=== PATIENT | female | born 1955 | race Two or more races ===

== ENCOUNTER 2025-02-15 23:47 | Inpatient (IN) | payer OTHER, SELFPAY ==
[2025-02-15] VITALS (19 sets, daily range): BP systolic 96–175; BP diastolic 44–74; BMI 24.5
--- NOTE | 2025-02-15 20:39 | ED.GENMED ---
History of Present Illness
General
Chief Complaint: Musculo-Skeletal Complaint
Source: patient, family and ambulance crew
Exam Limitations: none
Time Seen by Provider: 02/15/25 20:24
Nursing documentation reviewed up to this point in time: agreed with
History of Present Illness
History of Present Illness:
69-year-old female with a past medical history of hypertension, hyperlipidemia, diabetes who presents to the emergency department for evaluation after a fall on the treadmill. Patient was walking on the treadmill and was trying to stop it; she
accidentally hit the button to increase speed and was thrown backwards, fell face forward. She landed on both arms outstretched and struck the front of her face. She had some epistaxis and sustained abrasions to the chin and palms from treadmill
belt. She injured both shoulders�she has a deformity to left shoulder and has pain in both shoulders left greater than right. She complains of some mild pain in her left thigh. She reports mild headache. Denies neck pain. Denies back pain.
Denies chest/rib pain. She denies abdominal pain. She denies other complaints. She is on aspirin but no other blood thinners.
Review of Systems
Review of Systems
All Other Systems: ROS reviewed and negative except as documented in HPI and ROS
Respiratory: Denies trouble breathing
Cardiac: Denies chest pain
ABD/GI: Denies abdominal pain or nausea
: Denies flank pain
Musculoskeletal: Reports joint pain; Denies neck pain or back pain
Skin: Reports other (Abrasions)
Neurological: Reports headache
Phy Exam
Physical Exam
Physical Exam:
General: Awake, alert, oriented x3; appears uncomfortable
Head: Normocephalic, patient has abrasion to the chin and to the bridge of the nose, tenderness of the nasal bridge and some dried blood around the naris
Nose: As above, no septal hematoma
Eyes: Conjunctiva normal, EOMI, pupils equal round and reactive to light bilaterally
Throat: Airway intact, handling secretions, some dried blood on the tongue, no loose or fractured teeth, no tongue laceration
Neck: Trachea midline, no cervical spine tenderness
Lungs: Clear to auscultation bilaterally, no wheezing, rales, rhonchi
Heart: Regular rate and rhythm, no murmurs, gallops, or rubs; no chest wall tenderness
Abd: Soft, non distended, nontender
Neuro: Cranial nerves grossly intact, speech fluid; motor and sensory intact radial, median, ulnar nerve distribution in the upper extremities bilaterally
Skin: no rash
Extremities: Patient has obvious dislocation of left shoulder with palpable defect in the glenoid and tenderness in this area, pain with any attempted motion of the left shoulder; she has no deformity the right shoulder but she has significant
tenderness of the humeral head and pain with any attempted range of motion of the right arm; she is strong radial pulses bilaterally; she has a mild left lateral thigh tenderness but no bruising; she is able to move both hips through full active
range of motion, both knees and ankles full range of motion without pain; she has good pulses in the lower extremities bilaterally
Scores
Heart Failure Risk
Heart Failure Risk Score: Not Applicable
Heart Score for Chest Pain Patients
STEMI patient?: Not applicable
Withdrawal Assessment of Alcohol
Withdrawal Assessment Completed?: Not applicable
Course
Orders/Labs/Results
Orders:
Orders
02/15/25 20:24
CR Shoulder - Left Min 2 View* Urgent
Comment:
Reason For Exam: shoulder injury
02/15/25 20:36
CT Cervical Spine W/o Iv Contr Urgent
Comment:
Reason For Exam: fall with frontal trauma
CT Head W/o Iv Contrast Urgent
Comment:
Reason For Exam: fall with frontal trauma
HYDROmorphone [Dilaudid] 0.5 mg IV NOW STA
Tetanus/Diphth/Acelpertussis [Adacel] 0.5 ml IM .ONCE ONE
CR Femur - Left Min 2 Vw Urgent
Comment:
Reason For Exam: fall, left thigh pain
CR Humerus - Right Min 2 View* Urgent
Comment:
Reason For Exam: right arm pain s/p fall
02/15/25 20:40
Complete Blood Count/With Diff Urgent
Comprehensive Metabolic Panel Urgent
02/15/25 21:36
CT Facial Bones W/o Iv Contras Urgent
Comment:
Reason For Exam: nasal trauma
02/15/25 21:39
Case Management Consult ONCE
Case Management Consult: VN/Home Care
ORTHOPEDIC CONSULT Urgent
Consulting Provider: Obey Sampson
Was physician already notified: Yes
Ot Eval And Treat Urgent
Pt Eval And Treat Urgent
Activity Level: With Assistance
02/15/25 22:15
Propofol [Diprivan] 20 ml .ROUTE .STK-MED
02/15/25 22:20
CR Shoulder - Left 1 View Stat
Comment:
Reason For Exam: s/p reduction
02/15/25 22:33
CT Upper Ext W/o Iv Cont Lt Urgent
Comment:
Reason For Exam: shoulder fx
CT Upper Ext W/o Iv Cont Rt Urgent
Comment:
Reason For Exam: shoulder fx
02/15/25 23:00
Flush (0.9% Sodium Chloride) [Flush (Nss)] See Dose Instructions IV PER PROTOCOL
Abnormal Lab Results
02/15/25
20:40
RBC 3.97 L 10^6/uL
(4.20-5.40)
Hct 35.6 L %
(37.0-47.0)
Abs Immat Gran (auto) 0.1 H 10^3/uL
(0-0.05)
Absolute Monos (auto) 0.8 H 10^3/uL
(0.1-0.6)
Immature Gran % 1.2 H %
(0-0.5)
BUN 37 H mg/dl
(7-17)
Creatinine 1.3 H mg/dL
(0.6-1.0)
Glucose 221 H mg/dl
(70-99)
AST 37 H U/L
(14-36)
ALT 37 H U/L
(0-35)
02/15/25 20:40
02/15/25 20:40
Vital Signs
Initial and Last Documented VS:
Initial Vital Signs
BP
175/74
02/15/25 20:25
Last Documented Vital Signs
Temp Pulse Resp BP Pulse Ox
36.8 C 79 17 149/59 100
02/15/25 22:15 02/15/25 22:40 02/15/25 22:40 02/15/25 22:40 02/15/25 22:40
Procedures
Moderate Sedation
ASA Risk Score: Class II
Chart and allergies reviewed: Yes
Consent for anesthesia obtained: Yes
Time out completed (validating right patient & procedure): Yes
Moderate Sedation Start Time(when first medication is given): 22:19
History of difficult intubation: No
Airway free of obstruction: Yes
Patient has a gag reflex: Yes
Patient is able to open mouth: Yes
Patient has no dentures: Yes
Patient has no loose teeth: Yes
Medication administered by Provider during Moderate Sedation: IV Propofol (mg)
Total dose administered: 50
Time drug administered: 22:19
Moderate Sedation Procedure End Time: 22:35
Splinting/Sling Placement
Left Shoulder:
Procedure completed by: Abisai Metzger MD
Pre-splint extermity exam: neurovascular intact
Splint checked by provider?: Yes
Type of sling: sling fitted
Normal distal neurovascular exam?: Yes
Right Shoulder:
Procedure completed by: Abisai Metzger MD
Pre-splint extermity exam: neurovascular intact
Splint checked by provider?: Yes
Type of sling: sling fitted
Normal distal neurovascular exam?: Yes
Joint/Fracture Reduction
Left Shoulder:
Indication for procedure:: dislocation
Procedure completed by: Abisai Metzger MD
Consent form signed: Yes
Anesthesia/sedation: Moderate sedation
Injury was: closed
Further treatement: no treatment needed
Post reduction exam: stable
Capillary Refill: normal
Normal distal neurovascular exam?: Yes
MDM/Problems Addressed
Differential Diagnosis Includes:
Head trauma: Subdural, subarachnoid, facial fractures, concussion, cervical spine fracture
Shoulder pain: Fracture, dislocation, sprain, contusion, AC separation
MDM/Problems Addressed:
69-year-old female presents for evaluation after a fall on the treadmill as described above. Hypertensive but otherwise normal vitals. Physical exam as above. Will check CT of the head, cervical spine, facial bones. Check x-ray of the right
humerus, left shoulder. Check x-ray of the left femur. Pain control. Send basic screening labs. Update tetanus. Reassess after the above.
Screening labs reviewed: CBC and CMP no clinically significant abnormalities. X-rays reviewed in real-time by kathy has left shoulder dislocation. She has a right humeral head fracture. No femoral fracture noted. CT head and cervical spine no
acute abnormalities on my independent review�radiology reports are pending. Discussed with patient and family she will need left shoulder reduction under sedation. She will need to be placed in sling's bilaterally. Discussed with
orthopedist�requesting CT of the shoulders bilaterally after reduction of the left shoulder dislocation. Will plan to admit pending radiology reports and left shoulder reduction for orthopedic consultation, PT/OT evaluation and case management
consultation for functional reasons due to unfortunate injury pattern.
CT head and cervical spine report reviewed�negative for any acute pathology. Shoulder reduced as documented procedure note. Postreduction x-ray reviewed and confirms reduction. CTs ordered as per orthopedic request. Patient was placed in slings
bilaterally. Wounds cleaned and tetanus given. Case discussed with hospitalist for admission.
*Radiology
Radiology exam reviewed: preliminary read by ED provider and radiology read reviewed
*Pulse Oximetry
Patient hypoxic: no
*Critical Care Note
Total Time (30-74mins, 75-104mins- exclusive of procedures): Not Applicable
Data Reviewed
Source: patient, family and ambulance crew
Patient Management
Discussion with other providers: Hospitalist (Discussed with hospitalist) and Source Inspector (Discussed with orthopedist)
Escalation/DeEscalation of care consider admission/obs:
Admission indicated
ED Attending Note
-
Portions of this chart may have been created with voice recognition software.� Occasional wrong word or��sound alike� substitutions may have occurred due to the inherent limitations of voice recognition software.
Discharge Plan
Departure
Patient Disposition: Admit
Date of Disposition: 02/15/25
Time of Disposition: 22:35
Admit to doctor: Kit
Presentation/result/management discussed w/ accepting MD/DO: Hospitalist
Discharge Problem:
Abrasion, Dislocation of left shoulder joint, Closed fracture of head of right humerus, Fracture of nasal bone
Referrals:
[facility], [Other]
Inés Katz PA [Family Provider]
Interventions
Interventions:
*Risk Screen - Suicide Last Done: 02/15/25 20:48
*General Assessment Last Done: 02/15/25 20:48
*Neglect/Abuse Screening Last Done: 02/15/25 20:48
*ED- Fall Risk Assessment Last Done: 02/15/25 20:48
*ED COVID-19 Vaccine History Last Done: 02/15/25 20:48
ED-Musculoskeletal Assessment Last Done: 02/15/25 20:59
Discharge Date and Time
Print Language: [place]
[2025-02-15] MEDS: DILAUDID 0.5 MG IV (20:44)
[2025-02-15] MEDS: ADACEL 0.5 ML IM (20:45)
[2025-02-15 20:48] LABS: % Basophils 0.4 % (0-2); % Immature Granulocytes 1.2 % (0-0.5); % Lymphocytes 33.4 % (20.5-51.1); % Monocytes 7.7 % (1.7-9.3); % Neutrophils 55.3 % (42.2-75.2); Absolute Eosinophils 0.2 10^3/uL (0-0.7); Absolute Immature Granulocytes 0.1 10^3/uL (0-0.05); Absolute Lymphocytes 3.3 10^3/uL (1.2-3.4); Absolute Monocytes 0.8 10^3/uL (0.1-0.6); Absolute Neutrophils 5.4 10^3/uL (1.4-6.5); Hematocrit 35.6 % (37.0-47.0); Hemoglobin 12.1 g/dL (12.0-16.0); Mean Corpuscular Hgb 30.5 pg (27.0-31.0); Mean Corpuscular Volume 89.7 fL (81.0-99.0); Mean Platelet Volume 9.9 fL (7.4-10.4); Nucleated Red Blood Cells % 0 %; Platelet Count 231 10^3/uL (130-400); Red Blood Cell Count 3.97 10^6/uL (4.20-5.40); Red Cell Dist. Width 12.2 % (11.5-14.5); White Blood Cell Count 9.7 10^3/uL (4.8-10.8)
[2025-02-15 21:56] LABS: ALT (SGPT) 37 U/L (0-35); AST (SGOT) 37 U/L (14-36); Albumin 4.9 g/dl (3.5-5.0); Alkaline Phosphatase 75 U/L (38-126); Blood Urea Nitrogen 37 mg/dl (7-17); Calcium 10.2 mg/dl (8.4-10.2); Carbon Dioxide 25 mmol/L (22-30); Chloride 104 mmol/L (98-107); Estimated Creatinine Clearance 31 ml/min; Glucose 221 mg/dl (70-99); Potassium 4.8 mmol/L (3.5-5.1); Sodium 140 mmol/L (135-145); Total Bilirubin 0.6 mg/dl (0.2-1.3); Total Protein 7.7 g/dl (6.3-8.2); eGFR 43.96
--- NOTE | 2025-02-15 22:37 | HPS.HSE ---
Addendum entered and electronically signed by Vinny Pantoja DO 02/15/25 23:49:
Patient seen and examined independently. Agree with findings and plan as set forth by FLORENTINO Morel.
Patient is a 69y F with PMH significant for hypertension, DM-II and pituitary adenoma who presents to ED s/p fall. Patient was walking on a treadmill today when she accidentally increased the speed resulting in a fall. Her feet slipped out and
she fell landing hard on her front with outstretched hands and positive head / face impact. Patient had significant and immediate pain in the face, arms, shoulders. She was brought to the ED for further evaluation and treatment.
Patient has some chronic balance / gait issues and is typically very careful / fearful of falling. She uses the treadmill daily to maintain her conditioning / balance and typically has no issues.
No recent illness, chest pain, dyspnea, cough, fevers / chills, etc.
Ass:
Mechanical Fall
Left Shoulder Dislocation
Right Humeral Head Fracture
Superficial but Extensive Abrasions to the Face and Bilateral UEs
Benign Hypertension
DM-II
CKD II
Pituitary Adenoma
- Hypothyroidism
- Adrenal Insufficiency
Plan:
Admit for further evaluation and treatment.
L shoulder dislocation reduced in the ED.
Maintain b/l UE slings for now.
Ortho eval in the AM for additional recommendations.
Follow-up CT scans ordered (both shoulders) and are pending at present.
PT / OT evaluations. Pain control. Supportive care.
Given significant trauma / injury - and possibility of surgical intervention - would administer stress dose steroids for now.
Change back to usual hydrocortisone dosing prior to discharge.
Hold oral hypoglycemic agents acutely and cover with SSI.
Original Note:
Family Physician
-
Family Physician: Inés Katz
Chief Complaint
-
mechanical fall
History of Present Illness
Patient is a 69-year-old female with past medical history significant for hypertension, hyperlipidemia, diabetes, hypothyroid, CKD II andHx pituitary adenoma who presented to [facility] ED for evaluation status post mechanical fall. Patient family at
bedside to assist with HPI as patient is not Khmer speaking. she is primarily Malayalam speaking. Family reports that patient utilizes treadmill daily without difficulty for a 30 minute walk, today while attempting to increase speed she increased
speed too quickly and caused her to fall forward with extensive injuries. Family denies any recent illness or symptoms. They report patient has concerns of falling from previous falls.
Medical History
Past Medical History
Past Medical History: Reports Other
Additional Past Medical History:
hypertension
hyperlipidemia
diabetes
hypothyroid
CKD II
Hx hyponatremia
Hx pituitary adenoma
Past Surgical History: Reports Other
Additional Past Surgical History:
neurosurgery x2
Social History
Tobacco: Non-smoker
Alcohol: None
Drug: None
Living: With Family
Employment: Retired
Family History
Family History: Not pertinent
Allergies / Home Medications
Allergies reflects when Allergies were last updated in [facility].
Home Medications with original date entered in [facility]
Allergy/Medication List:
Allergies
Allergy/AdvReac Type Severity Reaction Status Date / Time
amlodipine Allergy Unknown Verified 02/15/25 22:58
chicken derived Allergy Unknown Verified 02/15/25 22:58
Penicillins Allergy Unknown Verified 02/15/25 20:24
pioglitazone Allergy Unknown Verified 02/15/25 22:58
Home Medications
amlodipine 5 mg tablet 5 mg PO DAILY 02/15/25
aspirin 81 mg tablet 81 mg PO DAILY 02/15/25
atorvastatin 10 mg tablet 10 mg PO DAILY 02/15/25
atorvastatin 20 mg tablet 20 mg PO QPM 02/15/25
bacitracin-polymyxin B topical ointment 1 ea topical QID 02/15/25
cholecalciferol (vitamin D3) 50 mcg (2,000 unit) tablet (Vitamin D3) 50 mcg PO DAILY 02/15/25
dulaglutide 0.75 mg/0.5 mL subcutaneous pen injector (Trulicity) 0.75 mg SC QWEEK 02/15/25
empagliflozin 25 mg tablet (Jardiance) 25 mg PO DAILY 02/15/25
ferrous sulfate 325 mg (65 mg iron) tablet 325 mg PO DAILY 02/15/25
gabapentin 100 mg capsule 100 mg PO DAILY 02/15/25
glipizide 10 mg tablet, extended release 24 hr 10 mg PO DAILY 02/15/25
hydrochlorothiazide 12.5 mg capsule 12.5 mg PO DAILY 02/15/25
hydrocortisone 10 mg tablet 10 mg PO BID 02/15/25
latanoprost 0.005 % eye drops 1 drp ophthalmic (eye) HS 02/15/25
levothyroxine 50 mcg tablet 50 mcg PO DAILY 02/15/25
losartan 100 mg tablet 100 mg PO DAILY 02/15/25
metformin 500 mg tablet,extended release 24 hr 500 mg PO BID 02/15/25
pantoprazole 40 mg tablet,delayed release 40 mg PO DAILY 02/15/25
sitagliptin phosphate 50 mg tablet (Januvia) 50 mg PO DAILY 02/15/25
Review of Systems
-
History Source: Patient (patient is Malayalam speaking ) and Family
Musculoskeletal: Reports Joint Pain (bilateral shoulder pain )
Skin: Reports Other (bui/abrasions to face, chin and bilateral arms )
Physical Exam
Vital Signs
Vital Signs
Pulse Resp BP Pulse Ox
67 16 175/74 100
02/15/25 20:45 02/15/25 20:45 02/15/25 20:25 02/15/25 20:45
Physical Exam
General: Well Developed, Well Nourished, No Apparent Distress and Pain
HEENT: NormoCephalic, Moist mucous membranes, Atraumatic, [place] Conjunctivae, Nose Appears Normal and Ears Appear Normal
Respiratory: Clear and Non Labored Respirations
Cardiac: S1/S2 and Regular Rhythm
Breast: Deferred by me
GI: Soft, Non Tender, Non Distended and Normal Bowel Sounds; No Organomegaly
Rectal: Deferred by Provider
Genito-urinary: Deferred by me
Musculoskeletal: No Clubbing, No Cyanosis, No Edema and Other (bilateral upper extremities are immobilized with slings )
Skin: Other (bui/abrasions to face, chin, and bilateral upper extremities )
Neuro: Awake, Alert and Nonfocal/grossly intact
Psych: Calm
Laboratory Results
-
02/15/25 20:40
02/15/25 20:40
Laboratory Results
Total Bilirubin 0.6 mg/dl (0.2-1.3) 02/15/25 20:40
AST 37 U/L (14-36) H 02/15/25 20:40
ALT 37 U/L (0-35) H 02/15/25 20:40
Alkaline Phosphatase 75 U/L (38-126) 02/15/25 20:40
Data Reviewed
-
CT Scan: Report Reviewed by me (C-spine, facial and head)
Lab Data: Labs Reviewed by me (BUN 37, Creat 1.3, est CrCl 31, eGFR 43.96)
Impression/Plan
-
IMPRESSION/PLAN:
#mechanical fall
BUN 37, Creat 1.3, est CrCl 31, eGFR 43.96
C-spine CT: No evidence of acute osseous injury of the cervical spine.
Severe diffuse degenerative disease.
Head CT: No acute intracranial abnormality noted.
Mild atrophy.
Small old lacunar infarct of the right lentiform nucleus.
Facial bone CT: Acute minimally displaced left nasal bone fracture.
Moderate right nasal septal deviation.
Bilateral robby bullosa.
X-ray reports pending
Bilateral Shoulder CT: pending
- Admit to med-surg
- Consult Orthopedics
- Consult wound care
- IV hydrocortisone 50mg q8
- olvin IVF NSS 60cc/hr for 1L
- pain regimen
#hypertension
- continue amlodipine, hydrochlorothiazide and losartan
#hyperlipidemia
- continue atorvastatin when able to verify dose and timing
#diabetes
- AccuCheck AC & HS
- SSI
- hold PO DM medications (Jardiance, Januvia, glipizide and metformin) while acutely ill
#hypothyroid
- continue levothyroxine
#CKD II
BUN 37, Creat 1.3, est CrCl 31, eGFR 43.96
family report baseline Creat 1.1
- olvin IVF
- monitor BMP
#Hx hyponatremia
possibly adrenal insufficiency??
- Hold home hydrocortisone
- IV hydrocortisone stress dosing 50mg q8
#Hx pituitary adenoma
follow at [place], cleared for > 10 years
s/p radiation and neurosurgery x2
Code status: full code
DVT Prophylaxis: SCDs
[2025-02-15] MEDS: MORPHINE SULFATE 2 MG IV (23:24)
[2025-02-16] VITALS: BP 154/55
[2025-02-16 00:30] VITALS: BP 160/70
[2025-02-16] MEDS: NSS 1000 IV ×2 (00:54→20:10)
[2025-02-16] MEDS: SOLU-CORTEF 50 MG IV (01:19)
[2025-02-16 01:27] LABS: Glucose - Point of Care 257 mg/dl (70-99)
--- NOTE | 2025-02-16 02:43 | PTCARENOTE ---
Pt arrived 0030 from ED. 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 Pt AAOX3. VSS. IVF. Pt B/L arms in sling. Multiple abrasions to the face. L hand wrapped in bhavin. Head to toe assessment complete. Family at bed side and assisted with admission questions since Pt has
language barrier. Care ongoing at this time.
[2025-02-16] MEDS: MORPHINE SULFATE 2 MG IV ×4 (04:57→23:38)
[2025-02-16] MEDS: SYNTHROID 50 MCG PO (05:08)
--- NOTE | 2025-02-16 05:10 | W.PN.UPDATE ---
Update Note
Progress Note Update
Bladder scan> 400, straight cath and UA. Patient with no other complaints.
[2025-02-16 05:36] LABS: Glucose - Point of Care 271 mg/dl (70-99)
[2025-02-16 05:43] VITALS: BMI 21.9
--- NOTE | 2025-02-16 06:33 | CON.ORTHO ---
Consultation
-
Date/Time Consultation Requested: 02/15/2025 @ 21:39
Date/Time Consultation Performed: 02/16/2025 @ 6:15 AM
Requesting Provider: Abisai Metzger MD
Performing Provider: Williams Crockett PA-C for Dr. Obye Sampson MD
Reason for Consultation: Bilateral Proximal Humerus Fractures
Consultation - Orthopedics
History
Orthopedic Surgery Note
CC: Bilateral Shoulder Pain; R > L x Yesterday Evening ~16:00
HPI: The patient is a 69-year-old [id number] Malayalam speaking female with a past medical history significant for Hypertenson, DM-II, and Pituitary adenoma who presented to ED s/p mechanical fall yesterday evening. History obtained
through patient's son who is at bedside; fluent in B[place]. It is reported that the patient was walking on a treadmill; she accidentally hit a button to increase speed and was subsequently thrown backwards, falling forward. She landed on both arms
outstretched and struck the front of her face. She underwent workup in the ED, which revealed a left shoulder glenohumeral dislocation with fracture as well as a right proximal humerus fracture. She underwent successful closed reduction of her
left shoulder in the ED. She was placed in slings bilaterally. She reports that her right shoulder is more painful than her left shoulder. She denies any pain elsewhere at present. She did sustain facial trauma, however denies any loss of
consciousness. She is on a baby Aspirin daily, however denies any further anticoagulant use. She lives at home with her family in a two-story home. She is fully ambulatory at baseline without assistance. She denies any paresthesias. Orthopedic
surgery was consulted for further treatment recommendations and management.
PMH/PSH: Hypertenson, DM-II, Pituitary adenoma. Neurosurgery x 2.
Medications: Reviewed.
Family History: Family history was reviewed. Noncontributory.
Social history: Nonsmoker, no illicit drugs.
Exam
General appearance: Pleasant. No acute distress.
Head: Normocephalic, moist mucous membranes.
Nose: No lesions or discharge.
Skin: Other (abrasions to face, chin, and bilateral upper extremities).
Lungs: No audible wheezing, no cough or sputum production
Musculoskeletal:
Physical examination of the bilateral upper extremities reveals slings intact bilaterally. There are soft dressings present about the bilateral wrist/hands for abrasions. There is tenderness to palpation diffusely about the left and right
shoulders/proximal humerus. Shoulder ROM deferred secondary to known fractures. Wrist range of motion intact bilaterally without increased pain. Digital range of motion is intact. Capillary refill is less than 2 seconds. Sensation is intact to
light touch distally.
Physical examination of the left lower extremity, with attention to the left hip does not reveal any obvious deformity, erythema, warmth, or ecchymosis. (-) Log[place]. There is no pain with internal rotation to 20 degrees, external rotation to 20
degrees, hip flexion 110 degrees, or hip abduction to 30 degrees. There is no tenderness to palpation over the greater trochanter. Calf is soft and nontender to palpation. Able to plantarflex and dorsiflex bilateral ankles. NVI distally.
Imaging:
Xrays:
CR Shoulder - LEFT Min 2 View* was obtained at [facility] on 02/15/2025 and was made available for my review today. Findings: There is anterior left shoulder dislocation with a fracture of the greater tuberosity. This is displaced
laterally by approximately 2 cm. No additional acute fractures are noted. There is mild sclerosis and joint space narrowing of the AC joint. Impression: Fracture dislocation of the left glenohumeral joint as described above. Mild AC joint
osteoarthritis.
CR Shoulder - LEFT 1 View (Post-Reduction) was obtained at [facility] on 02/15/2025 and was made available for my review today. Findings: The left anterior shoulder dislocation has been reduced. Alignment appears normal. The fracture
fragment involving the greater tuberosity also shows normal alignment. There is mild osteophyte formation of the inferior glenoid. Impression: Reduced left shoulder fracture dislocation. Mild glenohumeral joint osteoarthritis.
CR Femur - LEFT Min 2 Vw* was obtained at [facility] on 02/15/2025 and was made available for my review today. Findings: No definitive acute fractures identified. There is moderate joint space narrowing of the medial compartment and of the
lateral compartment. There is moderate joint space narrowing of the patellofemoral joint. There is moderate diffuse joint space narrowing and moderate acetabular sclerosis of the left hip joint as well as moderate osteophyte formation consistent
with osteoarthritis. Impression: No evidence of acute osseous injury. If still concern clinically, CT examination recommended. Osteoarthritis of the left hip and knee as described above.
CR Humerus - RIGHT Min 2 View* was obtained at [facility] on 02/15/2025 and was made available for my review today. Findings: There is a comminuted right humeral head fracture with mild impaction. The fracture fragment involving the
greater tuberosity is displaced laterally by approximately 9 mm. The humeral head remains in articulation with the glenoid. There is moderate osteophyte formation of the inferior glenoid. There is mild joint space narrowing of the AC joint. No
additional acute fractures are noted. Regional soft tissues are unremarkable. Impression: Acute comminuted and displaced right humeral head fracture as described above. Mild AC joint osteoarthritis.
CT Upper Ext W/o Iv Cont LT was performed at [facility] on 02/16/2025 and was made available for my review today. Impression: 1) Acute nondisplaced fracture of the greater tuberosity of the left humeral head. 2) No CT evidence for arthritis
of the left glenohumeral joint. 3) Mild osteoarthritis of the left acromioclavicular joint.
CT Upper Ext W/o Iv Cont RT was performed at [facility] on 02/16/2025 and was made available for my review today. Impression: 1) Acute comminuted fracture of the right proximal humerus. 2) 3.8 cm displaced greater tuberosity fracture
fragment. 3) Small 1.0 cm acute fracture of the anterior inferior glenoid rim. 4) Severe soft tissue edema and moderate soft tissue emphysema in the lateral belly of the deltoid muscle. 5) 3.7 cm solid right lower lobe pulmonary nodule.
CT Lower Ext W/o Iv Cont LT was performed at [facility] on 02/16/2025 and was made available for my review today. Impression: 1) Moderate diffuse retroperitoneal and extraperitoneal edema in the lower abdomen and pelvis. 2) Moderate
osteoarthritis of the left sacroiliac joint. 3) Mild to moderate bilateral osteoarthritis of the hips. 4) Mild to moderate multilevel lower lumbar discogenic degenerative disease. There is no CT evidence for acute pelvic or proximal femoral
fracture.
Assessment: 69-year-old [id number] female with RIGHT and LEFT Proximal Humerus Fractures.
Plan:
Unfortunately, the patient has sustained bilateral proximal humerus fractures. With respect to her right shoulder, recommended operative treatment. The risks, benefits, potential complications, and expected post-operative course were reviewed. I
spoke to her medical team, who advised that she is cleared to proceed with surgical treatment. We will plan for RIGHT reverse total shoulder arthroplasty under the direction of Dr. Sánchez tomorrow, 02/17/2025. Surgical and blood consents obtained
(signed by patient's son) and placed in the patient's chart. Ancef, iodine irrigation, and TXA irrigation on-call to OR. Patient to remain NPO pMN 02/16/2025. With respect to her left shoulder, treatment options were discussed, and shared decision
was to proceed with nonoperative management at this time with sling immobilization and serial radiographs to ensure no fracture displacement. Recommend obtaining repeat x-rays of the left shoulder in 1 week to ensure no interval displacement.
Remain NWB to bilateral upper extremities in sling's. Continue with pain medications as needed per primary team. Type and screen requested. RIGHT shoulder marked as the correct surgical extremity. Hemoglobin from 02/15 12.1. Orthopedic surgery
will continue to follow along.
Patient seen in tandem with Dr. Sampson
Allergies / Home Medications
Allergy/AdvReac Type Severity Reaction Status Date / Time
amlodipine Allergy Unknown Verified 02/15/25 22:58
chicken derived Allergy Unknown Verified 02/15/25 22:58
Penicillins Allergy Unknown Verified 02/15/25 20:24
pioglitazone Allergy Unknown Verified 02/15/25 22:58
�Medication �Instructions �Recorded
amlodipine 5 mg tablet 5 mg PO DAILY 02/15/25
aspirin 81 mg tablet 81 mg PO DAILY 02/15/25
atorvastatin 10 mg tablet 10 mg PO DAILY 02/15/25
atorvastatin 20 mg tablet 20 mg PO QPM 02/15/25
bacitracin-polymyxin B topical 1 ea topical QID 02/15/25
ointment
cholecalciferol (vitamin D3) 50 50 mcg PO DAILY 02/15/25
mcg (2,000 unit) tablet (Vitamin
D3)
dulaglutide 0.75 mg/0.5 mL 0.75 mg SC QWEEK 02/15/25
subcutaneous pen injector
(Trulicity)
empagliflozin 25 mg tablet 25 mg PO DAILY 02/15/25
(Jardiance)
ferrous sulfate 325 mg (65 mg 325 mg PO DAILY 02/15/25
iron) tablet
gabapentin 100 mg capsule 100 mg PO DAILY 02/15/25
glipizide 10 mg tablet, extended 10 mg PO DAILY 02/15/25
release 24 hr
hydrochlorothiazide 12.5 mg capsule 12.5 mg PO DAILY 02/15/25
hydrocortisone 10 mg tablet 10 mg PO BID 02/15/25
latanoprost 0.005 % eye drops 1 drp ophthalmic (eye) HS 02/15/25
levothyroxine 50 mcg tablet 50 mcg PO DAILY 02/15/25
losartan 100 mg tablet 100 mg PO DAILY 02/15/25
metformin 500 mg tablet,extended 500 mg PO BID 02/15/25
release 24 hr
pantoprazole 40 mg tablet,delayed 40 mg PO DAILY 02/15/25
release
sitagliptin phosphate 50 mg tablet 50 mg PO DAILY 02/15/25
(Januvia)
Vital Signs / Lab Results
Temp Pulse Resp BP Pulse Ox
97.6 F 86 16 160/70 97
02/16/25 00:30 02/16/25 00:30 02/16/25 00:30 02/16/25 00:30 02/16/25 02:17
[2025-02-16] MEDS: NOVOLOG FLEXPEN 2 UNITS SC (06:54)
[2025-02-16] MEDS: NOVOLOG FLEXPEN-LOW RESISTANCE SC (07:30)
[2025-02-16 07:57] VITALS: BP 123/66
--- NOTE | 2025-02-16 08:36 | W.PN.HOSP.TC ---
Today's Communication/Plan
-
Optimized for orthopedic surgery tomorrow
Assessment / Plan
Assessment / Plan
Physical exam:
General: Acutely ill
HEENT: Normocephalic, Atraumatic and Moist Mucous Membranes
Respiratory: Clear to Auscultation; Negative Wheezes, Rales or Rhonchi
Cardiac: Regular Rhythm and S1/S2
GI: Soft, Nontender and Nondistended
Musculoskeletal: Multiple skin lacerations. Bilateral shoulder immobilized. No Clubbing, No Cyanosis and No Edema
Neuro: Awake, Alert and Oriented, no gross neurological deficit
Psych: Calm
A/P:
Mechanical fall:
Continue pain control
PT eval
Discussed with family at bedside
Bilateral shoulder fracture:
Plan for right shoulder surgery tomorrow-discussed with orthopedic
Pain control
Preop eval:
RCRI index is 0 so giving a 3.9% risk of major cardiac event.
Obtain twelve-lead EKG and echocardiogram preop
Okay to go for surgery
Urinary retention:
Straight cath as needed
DENYS versus CKD:
Creatinine 1.3 today
Per family baseline around 1.1 but not quite clear
Gentle IV fluid
Repeat renal function in a.m.
Hypertension:
On losartan 100 mg daily and HCTZ 12.5 mg p.o. daily at home
Currently on losartan and amlodipine
Hyperlipidemia:
On atorvastatin 20 mg in the evening at home so resume
Diabetes mellitus type 2:
On glipizide 10 mg p.o. daily at home, metformin 1000 mg twice a day, and Jardiance 25 mg p.o. daily
Insulin sliding scale
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
History pituitary adenoma and adrenal insufficiency:
S/p surgery radiation at [place] many years back
On hydrocortisone 20 mg twice a day
Stop IV stress doses and resume home oral doses today
Hypothyroidism:
Continue levothyroxine 50 mcg p.o. daily-did not see on her home list but will continue for now.
Skin abrasion from trauma:
Wound care evaluation
Multivitamins at home:
On aspirin 81 mg, vitamin D3, iron, B complex, gabapentin 100 mg twice a day.
DVT prophylaxis:
SCDs
CODE STATUS:
Full code
Time spent 36 minutes
Anticipated Discharge: > 48 hours
Subjective/Interval History
-
Date of Service: February 16, 2025
Patient significant amount of pain from her fall. No chest pain or shortness of breath though.
Objective Data
-
Labs:
Laboratory Results
02/15/25 02/16/25
20:40 06:00
WBC 9.7 Pending
Hgb 12.1 Pending
Hct 35.6 L Pending
Plt Count 231 Pending
Sodium 140 Pending
Potassium 4.8 Pending
Chloride 104 Pending
Carbon Dioxide 25 Pending
BUN 37 H Pending
Creatinine 1.3 H Pending
Glucose 221 H Pending
Calcium 10.2 Pending
Total Bilirubin 0.6
AST 37 H
ALT 37 H
Alkaline Phosphatase 75
Vital Signs:
Vital Signs
Temp Pulse Resp BP Pulse Ox
98.5 F 103 16 123/66 95
02/16/25 07:57 02/16/25 07:57 02/16/25 07:57 02/16/25 07:57 02/16/25 07:57
I&O
02/15/25 02/16/25 02/17/25
06:59 06:59 06:59
Intake Total 300 / 300
Output Total 400 / 400
Balance -100 / -100
[2025-02-16] MEDS: NORVASC 5 MG PO (08:37)
[2025-02-16] MEDS: NEURONTIN 100 MG PO ×2 (08:37→20:10)
[2025-02-16] MEDS: VITAMIN D3 (cholecalciferol) 50 MCG PO (08:37)
[2025-02-16] MEDS: FEOSOL 325 MG PO (08:37)
[2025-02-16] MEDS: ASPIR LOW (ENTERIC COATED) 81 MG PO (08:37)
[2025-02-16] MEDS: PROTONIX 40 MG PO (08:37)
[2025-02-16] MEDS: COZAAR 100 MG PO (08:38)
[2025-02-16] MEDS: SOLU-CORTEF IV (08:38)
[2025-02-16] MEDS: CORTEF 10 MG PO ×2 (09:06→20:10)
[2025-02-16 10:14] LABS: Blood Urea Nitrogen 40 mg/dl (7-17); Carbon Dioxide 19 mmol/L (22-30); Chloride 109 mmol/L (98-107); Estimated Creatinine Clearance 34 ml/min; Glucose 272 mg/dl (70-99); Potassium 5.1 mmol/L (3.5-5.1); Sodium 138 mmol/L (135-145); eGFR 43.96
--- NOTE | 2025-02-16 10:51 | CM ---
Reviewed the chart notes and spoke with the patient and daughter at the bedside. Patient resides with her son in a two story home with two steps to enter. Per daughter, she lives close to the patient and will be available to assist. The patient's
daughter reports no DME/VN/SNF in the past. The patient's daughter confirmed her pharmacy of choice is [facility]. CM continues to be available to patient/family and is monitoring medical plan for needs at discharge.
Plan: Discharge plans will depend on the patient's progress.
--- NOTE | 2025-02-16 10:53 | WOUNDNOTE ---
R LATERAL HAND/WRIST
--- NOTE | 2025-02-16 10:55 | WOUNDNOTE ---
CHIN,LIP AND NOSE
--- NOTE | 2025-02-16 10:56 | WOUNDNOTE ---
WON RN note: Patient admitted with multiple abrasions and fracture after fall.
See H&P for complete history. Lives with Daughter.
PMH: 69-year-old female with a past medical history of hypertension, hyperlipidemia, diabetes who presents to the emergency department for evaluation after a fall on the treadmill
Wound Location and type/assessment: Patient admitted with: Shallow abrasions to plantar hands, chin, lip and nose. Trimmed off skin hanging from hand abrasions, base pink. Patient having allot of pain in arms, R arm> than L arm. Surgery
planned for R arm tomorrow, per Dr. Garcia at bedside. B/L slings on arms in place, CT scan of pelvis and legs pending. Unable to turn patient at this time. Nurse Spring confirmed that sacrum reported as intact when arrived to unit. Heels are intact,
patient able to lift legs slightly on own. Bridge of nose with intact steri strips, no drainage. Chin and lip with shallow abrasions, pink base and no drainage.
Appetite: NPO
Pressure redistribution devices in place: On [facility] max air bed. Pillow in use under calves, heels offloaded.
Plan: Applied adaptic and dry dressing to hand abrasions, Vaseline to lip and chin. Will order mineral oil to start tomorrow for lips and chin. Protective foams applied to heels. Local wound care approved by Dr. Garcia.
Updated RN Spring, care plan and will follow as needed.
Note to case management of equipment requested for discharge: VN unless family can do.
Recommend follow up at wound care center upon discharge.
--- NOTE | 2025-02-16 11:50 | PN.DE.MGMTRT ---
Insulin Management
- -
02/16/2025 Diabetes Management Consult
Patient admitted 02/15 s/p fall on treadmill with L shoulder dislocation, R humeral head fracture, abrasions of face. PMH HTN, HLD, diabetes, pituitary adenoma. Prior to admission patient was taking anuvia 50 mg daily, metformin 1000 mg BID,
glipizide 10 mg daily, Jardiance 25 mg daily. States she stopped trulicity in December 2024. A1C ordered, cr 1.3, eGFR 43.96.
Patient is awake alert and oriented able to discuss diabetes care. Daughter at bedside and very supportive. States she has had diabetes 25 years, sees endocrine in [facility] and her primary for diabetes care.
Patient has been ordered a diet, will resume Januvia 50 mg daily, metformin 1000 BID, glipizide 10 mg daily and Farxiga 10 mg daily (HOME Jardiance 25 mg) with low corrective insulin.
Patient for OR tomorrow.
Discussed with nurse.
Will follow
Diabetes History
- -
Type of Diabetes: 2
Pre-Admission Diabetes Regimen
02/15/25 02/16/25
20:40 09:22
Creatinine 1.3 H 1.3 H
Lab Results
Hemoglobin A1c Cancelled 02/16/25 09:22
Insulin Pump Settings
IP Diabetes Regimen
02/15/25 02/16/25 02/16/25
20:40 01:25 05:35
Glucose 221 H
POC Glucose 257 H 271 H
02/16/25
09:22
Glucose 272 H
POC Glucose
Patient Education
[2025-02-16] MEDS: GLUCOTROL XL (EXTENDED RELEASE) 10 MG PO (12:09)
[2025-02-16] MEDS: FARXIGA 10 MG PO (12:09)
[2025-02-16] MEDS: JANUVIA 50 MG PO (12:09)
[2025-02-16] MEDS: GLUCOPHAGE 1000 MG PO ×2 (12:09→17:09)
[2025-02-16 12:12] LABS: Glycohemoglobin (HgbA1c) 7.6 % (4.0-5.6)
[2025-02-16 12:41] LABS: Glucose - Point of Care 320 mg/dl (70-99)
[2025-02-16] MEDS: NOVOLOG FLEXPEN-LOW RESISTANCE 4 UNITS SC (12:46)
[2025-02-16 15:44] VITALS: BP 106/51
[2025-02-16] MEDS: LIPITOR 20 MG PO (17:09)
[2025-02-16 17:19] LABS: Glucose - Point of Care 250 mg/dl (70-99)
[2025-02-16] MEDS: NOVOLOG FLEXPEN-LOW RESISTANCE 3 UNITS SC (17:20)
[2025-02-16 19:10] LABS: Urine Albumin Negative (Neg - Trace); Urine Bilirubin Negative (Negative); Urine Character Clear (Clear); Urine Color Yellow; Urine Glucose 4+ (Negative); Urine Ketone Negative (Negative); Urine Leukocyte 1+ (Negative); Urine Nitrite Negative (Negative); Urine Occult Blood Negative (Negative); Urine Urobilinogen Negative (Neg - 1+)
[2025-02-16 19:39] LABS: Urine Red Blood Cell 0-2 /HPF (0-2); Urine Squamous Cell 0-2 /LPF (Few)
[2025-02-16 21:29] LABS: Glucose - Point of Care 170 mg/dl (70-99)
[2025-02-16 23:23] VITALS: BP 122/49
[2025-02-16] MEDS: XALATAN OPHTHALMIC SOLUTION 1 DROP RIGHT EYE (23:43)
[2025-02-17] VITALS (12 sets, daily range): BP systolic 105–136; BP diastolic 49–59
[2025-02-17 00:43] LABS: Glucose - Point of Care 194 mg/dl (70-99)
[2025-02-17] MEDS: MORPHINE SULFATE 2 MG IV (04:35)
--- NOTE | 2025-02-17 04:46 | DOWNTIME ---
Addendum entered by Nimisha Crawford RN 02/17/25 14:08:
Correction to downtime 02/17/2025 from 0100 to 02/17/25 at 0415.
Original Note:
There was a [email or web address] Client [employer] Downtime on 02/16/2025 from 0100 to 02/17/2025 at 0415. Downtime documentation of patient's care, including medication administrations, has been reconciled in the electronic record per guidelines. Refer to the
patient's paper chart under the miscellaneous tab to see printed paper medication records and downtime forms.
[2025-02-17] MEDS: SYNTHROID 50 MCG PO (05:27)
[2025-02-17 05:34] LABS: Glucose - Point of Care 200 mg/dl (70-99)
[2025-02-17] MEDS: NOVOLOG FLEXPEN-LOW RESISTANCE 2 UNITS SC (05:45)
[2025-02-17 06:33] LABS: Hematocrit 23.2 % (37.0-47.0); Hemoglobin 7.7 g/dL (12.0-16.0); Mean Corp Hgb Conc. 33.2 g/dL (33.0-37.0); Mean Corpuscular Hgb 30.4 pg (27.0-31.0); Mean Corpuscular Volume 91.7 fL (81.0-99.0); Mean Platelet Volume 10.4 fL (7.4-10.4); Platelet Count 150 10^3/uL (130-400); Red Blood Cell Count 2.53 10^6/uL (4.20-5.40); Red Cell Dist. Width 12.5 % (11.5-14.5)
[2025-02-17 06:45] LABS: Blood Urea Nitrogen 40 mg/dl (7-17); Calcium 8.9 mg/dl (8.4-10.2); Carbon Dioxide 22 mmol/L (22-30); Chloride 110 mmol/L (98-107); Estimated Creatinine Clearance 30 ml/min; Glucose 163 mg/dl (70-99); Potassium 4.8 mmol/L (3.5-5.1); Sodium 139 mmol/L (135-145); eGFR 37.03
--- NOTE | 2025-02-17 07:11 | W.PN.UPDATE ---
Update Note
Progress Note Update
Ms. Iverson is resting comfortably in bed this morning. She does endorse pain about the right shoulder. She denies any significant pain in her left shoulder or wrists at present. She is planned for OR today with Dr. Sánchez for a right reverse total
shoulder arthroplasty. Tenderness to palpation about the right shoulder. Painless passive motion of her right wrist. NVID. No significant tenderness about the left shoulder today. Painless passive and active motion of left wrist. NVID.
--NPO until surgery.
--Pain control prn. Ice for pain and edema control.
--Abx and irrigation ordered to OR.
--Orthopedics will continue to follow along.
--- NOTE | 2025-02-17 07:22 | PN.DE.MGMTRT ---
Insulin Management
- -
02/17/2025 Diabetes Management Consult Follow up
Patient admitted 02/15 s/p fall on treadmill with L shoulder dislocation, R humeral head fracture, abrasions of face. PMH HTN, HLD, diabetes, pituitary adenoma. Prior to admission patient was taking Januvia 50 mg daily, metformin 1000 mg BID,
glipizide 10 mg daily, Jardiance 25 mg daily. States she stopped trulicity in December 2024. A1C 7.9%, cr 1.3, eGFR 43.96.
Patient is awake alert and oriented able to discuss diabetes care. Family at bedside and very supportive. States she has had diabetes 25 years, sees endocrine in [facility] and her primary for diabetes care.
Patient is NPO for OR today, will HOLD Januvia 50 mg daily, metformin 1000 BID, glipizide 10 mg daily and Farxiga 10 mg daily (HOME Jardiance 25 mg) will continue low corrective insulin Q 6 hours.
Discussed with nurse.
Will follow
Diabetes History
- -
Type of Diabetes: 2
Pre-Admission Diabetes Regimen
02/16/25 02/17/25
09: 05:58
Creatinine 1.3 H 1.5 H
Lab Results
Hemoglobin A1c Cancelled 02/16/25 09:22
Insulin Pump Settings
IP Diabetes Regimen
02/16/25 02/16/25 02/16/25
09:22 12:40 17:18
Glucose 272 H
POC Glucose 320 H 250 H
02/16/25 02/17/25 02/17/25
21:27 00:41 05:32
Glucose
POC Glucose 170 H 194 H 200 H
02/17/25
05:58
Glucose 163 H
POC Glucose
Patient Education
[2025-02-17 07:42] LABS: Glucose - Point of Care 112 mg/dl (70-99)
--- NOTE | 2025-02-17 08:08 | CON.MD ---
Consultation - Medical
-
nasal fx
69 yo s/p fall c multiple injuries, shoulder fx
consulted due to nasal fx seen on CT
Pt awake and alert
taped laceration over nasal dorsum
Nasal bones feel stable with no significant displacement
No septal hematoma or nasal obstruction
CT reviewed - minimal displacement of R nasal bone
A/P Nasal fracture - minimal displacement R nasal bone
Should heal without incident, no airway obstruction and any noticeable displacement is minimal
Could consider closed reduction to maximize alignment - can be performed as outpt up to about 10 -12 days after injury, but feel like no treament is needed
[2025-02-17] MEDS: HYDROPHOR 1 APPLIC TOPICAL (08:54)
[2025-02-17] MEDS: NEURONTIN 100 MG PO ×2 (08:54→19:59)
[2025-02-17] MEDS: CORTEF 10 MG PO ×2 (08:55→19:59)
[2025-02-17] MEDS: PROTONIX 40 MG PO (08:55)
[2025-02-17] MEDS: NSS 1000 IV (08:56)
[2025-02-17] MEDS: ASPIR LOW (ENTERIC COATED) PO (09:01)
--- NOTE | 2025-02-17 09:08 | W.PN.HOSP.TC ---
Today's Communication/Plan
-
Plan for surgery today
Assessment / Plan
Assessment / Plan
Physical exam:
General: Acutely ill
HEENT: Normocephalic, Atraumatic and Moist Mucous Membranes
Respiratory: Clear to Auscultation; Negative Wheezes, Rales or Rhonchi
Cardiac: Regular Rhythm and S1/S2
GI: Soft, Nontender and Nondistended
Musculoskeletal: Multiple skin lacerations. Bilateral shoulder immobilized. No Clubbing, No Cyanosis and No Edema
Neuro: Awake, Alert and Oriented, no gross neurological deficit
Psych: Calm
A/P:
Bilateral shoulder fracture:
Plan for right shoulder surgery today
Pain control
Orthopedic following
PT eval
Discussed with family at bedside
Preop eval:
RCRI index is 0 so giving a 3.9% risk of major cardiac event.
Obtain twelve-lead EKG and echocardiogram preop--> reviewed twelve-lead EKG and echocardiogram and both unremarkable.
Okay to go for surgery
Acute blood loss anemia:
Worsening prior to surgery likely related to recent trauma and blood loss and perhaps component of ?dilutional
Proceed to do further workup
Blood transfusion
DENYS:
Multifactorial dehydration, anemia, postobstructive, medications, other
Hold ARB and HCTZ
IVF
kidney-bladder US
Mechanical fall:
Continue pain control
Urinary retention:
Straight cath as needed
DENYS versus CKD:
Creatinine 1.3 today
Per family baseline around 1.1 but not quite clear
Gentle IV fluid
Repeat renal function in a.m.
Hypertension:
On losartan 100 mg daily and HCTZ 12.5 mg p.o. daily at home
Currently on losartan and amlodipine
Hyperlipidemia:
On atorvastatin 20 mg in the evening at home so resume
Diabetes mellitus type 2:
On glipizide 10 mg p.o. daily at home, metformin 1000 mg twice a day, and Jardiance 25 mg p.o. daily
Insulin sliding scale
Diabetic CAN CAPPER
History pituitary adenoma and adrenal insufficiency:
S/p surgery radiation at [place] many years back
On hydrocortisone 20 mg twice a day
Consider IV stress doses if hypotension or n.p.o.
Hypothyroidism:
Continue levothyroxine 50 mcg p.o. daily-did not see on her home list but will continue for now.
Skin abrasion from trauma:
Wound care evaluation
Multivitamins at home:
On aspirin 81 mg, vitamin D3, iron, B complex, gabapentin 100 mg twice a day.
DVT prophylaxis:
SCDs
CODE STATUS:
Full code
Total time spent on today's encounter was 52 minutes which included time spent in counseling the patient/family regarding diagnosis and treatment plan as listed above, goals of care, and symptom management. Case was discussed with nursing staff,
specialists, and care coordinators/case management. All labs and imaging personally reviewed by me. Remainder the time spent in detailed review of previous records, lab data, imaging, and other medical provider documentation.
Anticipated Discharge: > 48 hours
Subjective/Interval History
-
Date of Service: February 17, 2025
Patient still have significant amount of pain. No chest pain or shortness of breath though. No melena, no hematemesis. Afebrile
Objective Data
-
Labs:
Laboratory Results
02/17/25
05:58
WBC 12.0 H
Hgb 7.7 L D
Hct 23.2 L
Plt Count 150 D
Sodium 139
Potassium 4.8
Chloride 110 H
Carbon Dioxide 22
BUN 40 H
Creatinine 1.5 H
Glucose 163 H
Calcium 8.9
Vital Signs:
Vital Signs
Temp Pulse Resp BP Pulse Ox
98.2 F 96 15 136/57 93
02/17/25 07:30 02/17/25 07:30 02/17/25 07:30 02/17/25 07:30 02/17/25 07:30
I&O
02/16/25 02/17/25 02/18/25
06:59 06:59 06:59
Intake Total 300 / 300 2180 / 2180
Output Total 400 / 400 1015 / 1015
Balance -100 / -100 1165 / 1165
--- NOTE | 2025-02-17 10:56 | CM ---
Reviewed the chart notes and spoke with the patient and her sister at the bedside. The patient is scheduled to go to the OR today for a right reverse total shoulder arthroplasty. CM continues to be available to patient/family and is monitoring
medical plan for needs at discharge.
Plan: Discharge plans will depend on the patient's progress.
[2025-02-17 11:16] LABS: Reticulocyte Count 2.6 % (0.4-2.8)
[2025-02-17 11:43] LABS: ALT (SGPT) 26 U/L (0-35); AST (SGOT) 31 U/L (14-36); Albumin 3.3 g/dl (3.5-5.0); Alkaline Phosphatase 51 U/L (38-126); Direct Bilirubin 0.2 mg/dl (0.0-0.4); Iron 44 ug/dl (37-170); LDH 276 U/L (120-246); Total Bilirubin 0.6 mg/dl (0.2-1.3); Total Protein 5.6 g/dl (6.3-8.2)
[2025-02-17 11:51] LABS: Percent Saturation 17 % (20-50); Total Iron Binding Capacity 253 ug/dl (265-497)
[2025-02-17 12:33] LABS: Glucose - Point of Care 86 mg/dl (70-99)
[2025-02-17 12:50] LABS: Folate > 20.0 ng/ml (2.76-20); Vitamin B12 754 pg/ml (239-931)
[2025-02-17] MEDS: NOVOLOG FLEXPEN-LOW RESISTANCE SC (12:53)
[2025-02-17 16:08] LABS: Glucose - Point of Care 134 mg/dl (70-99)
[2025-02-17 18:00] LABS: Glucose - Point of Care 256 mg/dl (70-99)
[2025-02-17] MEDS: NOVOLOG FLEXPEN-LOW RESISTANCE 3 UNITS SC (18:00)
[2025-02-17] MEDS: ASPIRIN 325 MG PO (19:58)
[2025-02-17] MEDS: VITAMIN D3 (cholecalciferol) 50 MCG PO (19:59)
[2025-02-17] MEDS: LIPITOR 20 MG PO (19:59)
[2025-02-17] MEDS: FEOSOL 325 MG PO (19:59)
[2025-02-17] MEDS: NORVASC 5 MG PO (19:59)
[2025-02-17] MEDS: ANCEF 5 IV (22:02)
[2025-02-17] MEDS: XALATAN OPHTHALMIC SOLUTION 1 DROP RIGHT EYE (22:02)
[2025-02-17 22:09] LABS: Glucose - Point of Care 402 mg/dl (70-99)
[2025-02-17 23:05] LABS: Glucose 384 mg/dl (70-99)
[2025-02-17] MEDS: NOVOLOG FLEXPEN 5 UNITS SC (23:39)
[2025-02-18] VITALS (8 sets, daily range): BP systolic 122–153; BP diastolic 52–72
[2025-02-18 01:51] LABS: Glucose - Point of Care 394 mg/dl (70-99)
[2025-02-18] MEDS: NOVOLOG FLEXPEN 5 UNITS SC (02:05)
[2025-02-18] MEDS: NSS 1000 IV (02:06)
[2025-02-18] MEDS: ANCEF 5 IV (04:04)
[2025-02-18 04:08] LABS: Glucose - Point of Care 351 mg/dl (70-99)
[2025-02-18] MEDS: NOVOLOG FLEXPEN 9 UNITS SC (04:28)
--- NOTE | 2025-02-18 04:51 | W.PN.UPDATE ---
Update Note
Progress Note Update
BS 402, 394, 351 was covered with insulin at overnight, on low resistance insulin�
High blood sugar likely due to steroids.�
Will change to insulin to moderate resistance�
check AccuCheck per protocol
[2025-02-18] MEDS: SYNTHROID 50 MCG PO (06:03)
[2025-02-18 06:07] LABS: Glucose - Point of Care 293 mg/dl (70-99)
[2025-02-18 06:23] LABS: Blood Urea Nitrogen 38 mg/dl (7-17); Calcium 8.3 mg/dl (8.4-10.2); Carbon Dioxide 21 mmol/L (22-30); Chloride 108 mmol/L (98-107); Estimated Creatinine Clearance 34 ml/min; Glucose 275 mg/dl (70-99); Potassium 4.4 mmol/L (3.5-5.1); Sodium 136 mmol/L (135-145); eGFR 43.96
[2025-02-18 06:29] LABS: Hematocrit 17.2 % (37.0-47.0); Hemoglobin 5.9 g/dL (12.0-16.0); Mean Corp Hgb Conc. 34.3 g/dL (33.0-37.0); Mean Corpuscular Hgb 30.7 pg (27.0-31.0); Mean Corpuscular Volume 89.6 fL (81.0-99.0); Mean Platelet Volume 11.1 fL (7.4-10.4); Platelet Count 115 10^3/uL (130-400); Red Blood Cell Count 1.92 10^6/uL (4.20-5.40); Red Cell Dist. Width 12.4 % (11.5-14.5); White Blood Cell Count 9.6 10^3/uL (4.8-10.8)
--- NOTE | 2025-02-18 06:38 | W.PN.UPDATE ---
Update Note
Progress Note Update
hgb 5.9/17.2 cosent in chart, Type and screen done, stable VS, asymptomatic, discussed the plan� of blood transfusion to son and patient, will transfuse 2 unit of PRBC's.�
--- NOTE | 2025-02-18 07:13 | W.PN.ORTHO ---
Today's Communication / Plan
-
Sling left upper extremity
Sling/abductor pillow right upper extremity
Strict nonweightbearing bilateral upper extremities
Pain control
Aspirin for DVT prophylactics
Patient to receive 2 units packed red blood cells today
Follow-up in office for x-ray 10 to 14 days to check left shoulder fracture position and right shoulder postop
Assessment
.
Distal Motor Intact: Yes
Dressing:
Clean, dry and intact.
Plan
.
Surgery / Date: R RTSA 02/17 Ritting/ L Sh fx (S/P closed red)
DVT Prophylaxis: Aspirin
Activity:
Out of bed.
PT/OT
Discharge Plan: Rehab
Subjective
.
.:
Patient resting comfortably. Sling left upper extremity and sling with abductor pillow right upper extremity. Pain controlled overnight. She is going to receive blood today.
Vital Signs and Labs
.
Vital Signs and Labs:
Lab Results
02/18/25 05:44
02/18/25 05:44
Temp Pulse Resp BP Pulse Ox
98.6 F 97 17 126/58 94
02/17/25 23:25 02/17/25 23:25 02/17/25 23:25 02/17/25 23:25 02/18/25 04:34
Physical Exam
-
Left upper extremity sling in place with moderate edema and no ecchymosis.
Right upper extremity sling with abductor pillow in place. Scant strikethrough noted on the dressing. Moderate edema about the upper extremity.
[2025-02-18 07:40] LABS: Glucose - Point of Care 286 mg/dl (70-99)
--- NOTE | 2025-02-18 07:41 | W.PN.HOSP.TC ---
Today's Communication/Plan
-
Blood transfusion. CT of the abdomen.
Assessment / Plan
Assessment / Plan
Physical exam:
General: Acutely ill
HEENT: Normocephalic, Atraumatic and Moist Mucous Membranes
Respiratory: Clear to Auscultation; Negative Wheezes, Rales or Rhonchi
Cardiac: Regular Rhythm and S1/S2
GI: Soft, Nontender and Nondistended
Musculoskeletal: Multiple skin lacerations. Bilateral shoulder immobilized. No Clubbing, No Cyanosis and No Edema
Neuro: Awake, Alert and Oriented, no gross neurological deficit
Psych: Calm
A/P:
Bilateral shoulder fracture (right side is comminuted fracture):
Status post total reverse arthroplasty right shoulder on 02/17
Pain control
Orthopedic following
PT eval
Discussed with family at bedside
Acute blood loss anemia:
Worsening prior to surgery likely related to recent trauma and blood loss
Workup revealed some iron deficiency some anemia of chronic disease, and normal B12 and folate. Reticulocyte count not that elevated. LFTs normal, LDH minimally elevated.
Status post blood transfusion yesterday and despite that hemoglobin low today
More blood transfusion today
Obtain CT of the abdomen pelvis today rule out retroperitoneal bleed and get baseline cxr
We will hold aspirin full dose until anemia stabilizes
Thrombocytopenia:
Suspect sequestration from blood loss
Continue to monitor closely
Preop eval:
RCRI index is 0 so giving a 3.9% risk of major cardiac event.
Obtain twelve-lead EKG and echocardiogram preop--> reviewed twelve-lead EKG and echocardiogram and both unremarkable.
Okay to go for surgery
DENYS:
Multifactorial dehydration, anemia, postobstructive, medications, other
Hold ARB and HCTZ
IVF
kidney-bladder US
Mechanical fall:
Continue pain control
Urinary retention:
Straight cath as needed
DENYS versus CKD:
Creatinine 1.3 today
Per family baseline around 1.1 but not quite clear
Gentle IV fluid
Repeat renal function in a.m.
Hypertension:
On losartan 100 mg daily and HCTZ 12.5 mg p.o. daily at home and on hold due to DENYS
Currently on amlodipine
Hyperlipidemia:
On atorvastatin 20 mg in the evening at home so resume
Diabetes mellitus type 2:
On glipizide 10 mg p.o. daily at home, metformin 1000 mg twice a day, and Jardiance 25 mg p.o. daily
Insulin sliding scale
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
History pituitary adenoma and adrenal insufficiency:
S/p surgery radiation at [place] many years back
On hydrocortisone 20 mg twice a day
Consider IV stress doses if hypotension or n.p.o.
Hypothyroidism:
Continue levothyroxine 50 mcg p.o. daily-did not see on her home list but will continue for now.
Skin abrasion from trauma:
Wound care evaluation
Multivitamins at home:
On aspirin 81 mg, vitamin D3, iron, B complex, gabapentin 100 mg twice a day.
DVT prophylaxis:
SCDs
CODE STATUS:
Full code
Total time spent on today's encounter was 52 minutes which included time spent in counseling the patient/family regarding diagnosis and treatment plan as listed above, goals of care, and symptom management. Case was discussed with nursing staff,
specialists, and care coordinators/case management. All labs and imaging personally reviewed by me. Remainder the time spent in detailed review of previous records, lab data, imaging, and other medical provider documentation.
Anticipated Discharge: > 48 hours
Subjective/Interval History
-
Date of Service: February 18, 2025
Patient still with pain although more tolerable. No chest pain or shortness of breath. No abdominal pain.
Objective Data
-
Labs:
Laboratory Results
02/17/25 02/18/25
22:21 05:44
WBC 9.6
Hgb 5.9 L* D
Hct 17.2 L*
Plt Count 115 L D
Sodium 136
Potassium 4.4
Chloride 108 H
Carbon Dioxide 21 L
BUN 38 H
Creatinine 1.3 H
Glucose 384 H 275 H
Calcium 8.3 L
Vital Signs:
Vital Signs
Temp Pulse Resp BP Pulse Ox
98.6 F 97 17 126/58 94
02/17/25 23:25 02/17/25 23:25 02/17/25 23:25 02/17/25 23:25 02/18/25 04:34
I&O
02/17/25 02/18/25 02/19/25
06:59 06:59 06:59
Intake Total 2180 / 2180 517 / 517 1620 / 1620
Output Total 1015 / 1015 625 / 625 675 / 675
Balance 1165 / 1165 -108 / -108 945 / 945
[2025-02-18] MEDS: NOVOLOG FLEXPEN-MODERATE RESISTANCE 5 UNITS SC (07:52)
[2025-02-18] MEDS: ASPIRIN 325 MG PO (07:53)
[2025-02-18] MEDS: CORTEF 10 MG PO ×2 (07:53→20:12)
[2025-02-18] MEDS: PROTONIX 40 MG PO (07:54)
[2025-02-18] MEDS: FEOSOL 325 MG PO (07:54)
[2025-02-18] MEDS: VITAMIN D3 (cholecalciferol) 50 MCG PO (07:54)
[2025-02-18] MEDS: HYDROPHOR 1 APPLIC TOPICAL (07:54)
[2025-02-18] MEDS: NEURONTIN 100 MG PO ×2 (07:54→20:13)
--- NOTE | 2025-02-18 08:05 | PN.DE.MGMTRT ---
Insulin Management
- -
02/18/2025 Diabetes Management Consult Follow up
Patient admitted 02/15 s/p fall on treadmill with L shoulder dislocation, R humeral head fracture, abrasions of face. PMH HTN, HLD, diabetes, pituitary adenoma. Prior to admission patient was taking Januvia 50 mg daily, metformin 1000 mg BID,
glipizide 10 mg daily, Jardiance 25 mg daily. States she stopped trulicity in December 2024. A1C 7.9%, cr 1.3, eGFR 43.96.
POD 1 s/p R reverse total shoulder arthroplasty, L closed reduction humeral fracture. Patient is awake alert and oriented able to discuss diabetes care. Family at bedside and very supportive. States she has had diabetes 25 years, sees endocrine
in [facility] and her primary for diabetes care.
s/p OR patient glucose up to 402, did receive corrective insulin. Fasting glucose 293 today. Will resume Januvia 50 mg daily, metformin 1000 BID, glipizide 10 mg daily and Farxiga 10 mg daily (HOME Jardiance 25 mg) will continue moderate
corrective insulin AC.
Discussed with nurse.
Will follow
Diabetes History
- -
Type of Diabetes: 2
Pre-Admission Diabetes Regimen
02/18/25
05:44
Creatinine 1.3 H
Lab Results
Hemoglobin A1c Cancelled 02/16/25 09:22
Insulin Pump Settings
IP Diabetes Regimen
02/17/25 02/17/25 02/17/25
12:31 16:06 17:59
Glucose
POC Glucose 86 134 H 256 H
02/17/25 02/17/25 02/18/25
22:06 22:21 01:49
Glucose 384 H
POC Glucose 402 H 394 H
02/18/25 02/18/25 02/18/25
04:07 05:44 06:05
Glucose 275 H
POC Glucose 351 H 293 H
02/18/25
07:38
Glucose
POC Glucose 286 H
Meal type: Dinner
Meal type: Lunch
Meal type: Breakfast
Amount consumed: Patient refused
Patient Education
[2025-02-18] MEDS: JANUVIA 50 MG PO (09:49)
[2025-02-18] MEDS: GLUCOPHAGE 1000 MG PO ×2 (09:49→17:49)
[2025-02-18] MEDS: FARXIGA 10 MG PO (09:49)
[2025-02-18] MEDS: GLUCOTROL XL (EXTENDED RELEASE) 10 MG PO (09:49)
--- NOTE | 2025-02-18 11:17 | CM ---
Reviewed the chart notes. Patient's hgb 5.9 today PT/OT are unable to evaluate due to the low hgb. Patient to receive 2 units PRBC today. Patient is ordered NWB to bilat UEs. Bilat UEs in slings. CM continues to be available to patient/family
and is monitoring medical plan for needs at discharge.
Plan: Discharge plans will depend on the patient's progress. PT/OT evaluations pending.
[2025-02-18] MEDS: NORVASC 5 MG PO (11:45)
[2025-02-18 12:28] LABS: Glucose - Point of Care 233 mg/dl (70-99)
[2025-02-18] MEDS: NOVOLOG FLEXPEN-MODERATE RESISTANCE 3 UNITS SC ×2 (12:52→17:49)
[2025-02-18] MEDS: MIRALAX 17 GRAMS PO (13:49)
[2025-02-18] MEDS: ROXICODONE 5 MG PO (13:49)
[2025-02-18] MEDS: SENOKOT-S 1 TABLET PO ×2 (13:49→20:13)
[2025-02-18] MEDS: DUPHALAC/CHRONULAC 20 GRAMS PO (14:28)
[2025-02-18] MEDS: NSS IV (15:20)
[2025-02-18 17:30] LABS: Glucose - Point of Care 248 mg/dl (70-99)
[2025-02-18] MEDS: LIPITOR 20 MG PO (17:49)
[2025-02-18] MEDS: MORPHINE SULFATE 2 MG IV (17:51)
[2025-02-18] MEDS: VIBRAMYCIN 100 MG PO (20:13)
[2025-02-18] MEDS: TYLENOL 650 MG PO (20:22)
[2025-02-18] MEDS: ROXICODONE 10 MG PO (20:22)
[2025-02-18] MEDS: XALATAN OPHTHALMIC SOLUTION 1 DROP RIGHT EYE (21:30)
[2025-02-18 21:39] LABS: Glucose - Point of Care 230 mg/dl (70-99)
[2025-02-18] MEDS: BENADRYL 25 MG PO (22:17)
--- NOTE | 2025-02-19 05:56 | W.PN.ORTHO ---
Today's Communication / Plan
-
69F POD 2 R rTSA, L shoulder closed reduction with Dr. Sánchez
Sling left upper extremity
Sling/abductor pillow right upper extremity
Strict nonweightbearing bilateral upper extremities; ROM ok of elbows, wrist and hand
Pain control regimen in place per primary
Monitor H&H; SCDs; DVT ppx per primary in setting of requiring transfusions; AM labs pending yet
Follow-up in office for x-ray 10 to 14 days to check left shoulder fracture position and right shoulder postop
Assessment
.
Distal Motor Intact: Yes
Dressing:
Clean, dry and intact.
Plan
.
Surgery / Date: R RTSA 02/17 Princess/ Sebastian Sh fx (S/P closed red)
Activity:
Out of bed.
PT/OT
Subjective
.
.:
Patient resting comfortably.
Vital Signs and Labs
.
Vital Signs and Labs:
Temp Pulse Resp BP Pulse Ox
98.6 F 98 16 153/72 92
02/18/25 23:20 02/18/25 23:20 02/18/25 23:20 02/18/25 23:20 02/18/25 23:20
[2025-02-19] MEDS: TYLENOL 650 MG PO (06:16)
[2025-02-19] MEDS: SYNTHROID 50 MCG PO (06:16)
--- NOTE | 2025-02-19 07:12 | PN.DE.MGMTRT ---
Insulin Management
- -
02/19/2025 Diabetes Management Consult Follow up
Patient admitted 02/15 s/p fall on treadmill with L shoulder dislocation, R humeral head fracture, abrasions of face. PMH HTN, HLD, diabetes, pituitary adenoma. Prior to admission patient was taking Januvia 50 mg daily, metformin 1000 mg BID,
glipizide 10 mg daily, Jardiance 25 mg daily. States she stopped trulicity in December 2024. A1C 7.9%, cr 1.3, eGFR 43.96.
POD 2 s/p R reverse total shoulder arthroplasty, L closed reduction humeral fracture. Patient is awake alert and oriented able to discuss diabetes care. Family at bedside and very supportive. States she has had diabetes 25 years, sees endocrine
in [facility] and her primary for diabetes care.
Glucose range 02/18 233 to 293 received Januvia 50 mg daily, metformin 1000 BID, glipizide 10 mg daily and Farxiga 10 mg daily (HOME Jardiance 25 mg) with moderate corrective insulin AC.
02/19 Fasting glucose 206. Will start AM lantus 12 units.
Discussed with nurse.
Will follow
Diabetes History
- -
Type of Diabetes: 2
Pre-Admission Diabetes Regimen
Lab Results
Hemoglobin A1c Cancelled 02/16/25 09:22
Insulin Pump Settings
IP Diabetes Regimen
02/18/25 02/18/25 02/18/25
07:38 12:26 17:29
POC Glucose 286 H 233 H 248 H
02/18/25
21:38
POC Glucose 230 H
Meal type: Breakfast
Amount consumed: 100%
Patient Education
[2025-02-19 07:27] VITALS: BP 133/60
[2025-02-19 08:00] LABS: Glucose - Point of Care 206 mg/dl (70-99)
[2025-02-19] MEDS: CORTEF 10 MG PO ×2 (08:33→20:05)
[2025-02-19] MEDS: DUPHALAC/CHRONULAC 20 GRAMS PO (08:33)
[2025-02-19] MEDS: NOVOLOG FLEXPEN-MODERATE RESISTANCE 3 UNITS SC (08:33)
[2025-02-19] MEDS: FEOSOL 325 MG PO (08:34)
[2025-02-19] MEDS: FARXIGA 10 MG PO (08:34)
[2025-02-19] MEDS: SENOKOT-S 1 TABLET PO (08:35)
[2025-02-19] MEDS: NEURONTIN 100 MG PO ×2 (08:35→20:05)
[2025-02-19] MEDS: VIBRAMYCIN 100 MG PO ×2 (08:35→20:05)
[2025-02-19] MEDS: PROTONIX 40 MG PO (08:35)
[2025-02-19] MEDS: JANUVIA 50 MG PO (08:35)
[2025-02-19] MEDS: VITAMIN D3 (cholecalciferol) 50 MCG PO (08:35)
[2025-02-19] MEDS: GLUCOPHAGE 1000 MG PO ×2 (08:35→17:43)
[2025-02-19] MEDS: GLUCOTROL XL (EXTENDED RELEASE) 10 MG PO (08:35)
[2025-02-19] MEDS: MIRALAX 17 GRAMS PO (08:36)
[2025-02-19] MEDS: LANTUS 0.12 UNITS SC (08:36)
[2025-02-19] MEDS: NORVASC 5 MG PO (08:36)
[2025-02-19] MEDS: HYDROPHOR 1 APPLIC TOPICAL (08:36)
[2025-02-19 08:49] LABS: Hematocrit 27.6 % (37.0-47.0); Hemoglobin 9.8 g/dL (12.0-16.0); Mean Corp Hgb Conc. 35.5 g/dL (33.0-37.0); Mean Corpuscular Hgb 30.3 pg (27.0-31.0); Mean Corpuscular Volume 85.4 fL (81.0-99.0); Mean Platelet Volume 10.5 fL (7.4-10.4); Platelet Count 142 10^3/uL (130-400); Red Blood Cell Count 3.23 10^6/uL (4.20-5.40); Red Cell Dist. Width 14.2 % (11.5-14.5); White Blood Cell Count 12.4 10^3/uL (4.8-10.8)
[2025-02-19 08:55] LABS: Blood Urea Nitrogen 41 mg/dl (7-17); Calcium 8.6 mg/dl (8.4-10.2); Carbon Dioxide 22 mmol/L (22-30); Chloride 109 mmol/L (98-107); Estimated Creatinine Clearance 41 ml/min; Glucose 192 mg/dl (70-99); Potassium 4.8 mmol/L (3.5-5.1); Sodium 138 mmol/L (135-145); eGFR 53.72
[2025-02-19 09:10] VITALS: BP 149/63; BP 167/75; PULSE 90; O2SAT 91
[2025-02-19 09:16] VITALS: BP 149/63; BP 167/75; PULSE 90; O2SAT 91
--- NOTE | 2025-02-19 09:30 | W.PN.HOSP.TC ---
Today's Communication/Plan
-
Pain control. Monitor hemoglobin
Assessment / Plan
Assessment / Plan
Physical exam:
General: Acutely ill
HEENT: Normocephalic, Atraumatic and Moist Mucous Membranes
Respiratory: Clear to Auscultation; Negative Wheezes, Rales or Rhonchi
Cardiac: Regular Rhythm and S1/S2
GI: Soft, Nontender and Nondistended
Musculoskeletal: Multiple skin lacerations. Postop right shoulder. No Clubbing, No Cyanosis and No Edema
Neuro: Awake, Alert and Oriented, no gross neurological deficit
Psych: Calm
A/P:
Bilateral shoulder fracture (right side is comminuted fracture):
Status post total reverse arthroplasty right shoulder on 02/17
Pain control
Orthopedic following
PT OT eval
Appreciated orthopedic consult and follow-up
Discussed with family at bedside
Medically ready for discharge over the next 24 hours if hemoglobin remains stable
Acute blood loss anemia:
Hemoglobin 5.9--> up to 9.8
Workup revealed some iron deficiency some anemia of chronic disease, and normal B12 and folate. Reticulocyte count not that elevated. LFTs normal, LDH minimally elevated.
Status post blood transfusion
IV iron
CT of the abdomen pelvis unremarkable
Constipation:
Continue bowel regimen
Thrombocytopenia:
Suspect sequestration from blood loss and now back up to normal today
Preop eval:
RCRI index is 0 so giving a 3.9% risk of major cardiac event.
Obtain twelve-lead EKG and echocardiogram preop--> reviewed twelve-lead EKG and echocardiogram and both unremarkable.
Okay to go for surgery
DENYS:
Multifactorial dehydration, anemia, postobstructive, medications, other
Improving Cr 1.5--> 1.1 today
Hold ARB and HCTZ
Off IVF
kidney-bladder US
Mechanical fall:
Continue pain control
Urinary retention:
Straight cath as needed
DENYS versus CKD:
Creatinine 1.3 today
Per family baseline around 1.1 but not quite clear
Gentle IV fluid
Repeat renal function in a.m.
Hypertension:
On losartan 100 mg daily and HCTZ 12.5 mg p.o. daily at home and on hold due to DENYS
Currently on amlodipine
Hyperlipidemia:
On atorvastatin 20 mg in the evening at home so resume
Diabetes mellitus type 2:
On glipizide 10 mg p.o. daily at home, metformin 1000 mg twice a day, and Jardiance 25 mg p.o. daily
Insulin sliding scale
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
History pituitary adenoma and adrenal insufficiency:
S/p surgery radiation at [place] many years back
On hydrocortisone 20 mg twice a day
Consider IV stress doses if hypotension or n.p.o.
Hypothyroidism:
Continue levothyroxine 50 mcg p.o. daily-did not see on her home list but will continue for now.
Skin abrasion from trauma:
Wound care evaluation
Multivitamins at home:
On aspirin 81 mg, vitamin D3, iron, B complex, gabapentin 100 mg twice a day.
DVT prophylaxis:
Start heparin SQ and plan to do full dose aspirin upon discharge
CODE STATUS:
Full code
Time spent 35 minutes
Anticipated Discharge: 24 - 48 hours
Subjective/Interval History
-
Date of Service: February 19, 2025
Patient pain is tolerable. No melena or hematemesis.
Objective Data
-
Labs:
Laboratory Results
02/18/25 02/19/25
20:00 08:11
WBC 12.4 H
Hgb Cancelled 9.8 L D
Hct Cancelled 27.6 L
Plt Count 142 D
Sodium 138
Potassium 4.8
Chloride 109 H
Carbon Dioxide 22
BUN 41 H
Creatinine 1.1 H
Glucose 192 H
Calcium 8.6
Vital Signs:
Vital Signs
Temp Pulse Resp BP Pulse Ox
98.1 F 68 16 134/73 96
02/19/25 07:27 02/19/25 08:36 02/19/25 07:27 02/19/25 08:36 02/19/25 07:27
I&O
02/18/25 02/19/25 02/20/25
06:59 06:59 06:59
Intake Total 517 / 517 3020 / 3020 480 / 480
Output Total 625 / 625 1675 / 1675 1450 / 1450
Balance -108 / -108 1345 / 1345 -970 / -970
--- NOTE | 2025-02-19 10:45 | CM ---
Addendum entered by Juliana Bernard RN 02/19/25 16:13:
IMM on chart.
Addendum entered by Juliana Bernard RN 02/19/25 15:03:
Auth obtained for tomorrow. 02/20-02/24; NRD 02/24 call clinicals to [phone]; Auth# [id number]
Addendum entered by Juliana Bernard RN 02/19/25 13:03:
[facility] accepting patient when medically stable.
[facility] NPI# [id number]
Dr. Villeda NPI# [id number]
[facility]
Call report to: [phone]
Fax report to: [phone]
Original Note:
Reviewed the chart notes and spoke with the patient, daughter, and spouse at the bedside. Discussed SNF/rehab recommendation from PT/OT. Family selected [facility] due to patient's daughter working there as a nurse. Referral sent via [facility] with
[facility]. CM continues to be available to patient/family and is monitoring medical plan for needs at discharge.
Plan: Discharge to SNF/rehab once medically stable and bed secured. Auth will be required.
[2025-02-19 11:52] LABS: Glucose - Point of Care 114 mg/dl (70-99)
[2025-02-19] MEDS: NOVOLOG FLEXPEN-MODERATE RESISTANCE SC ×2 (12:06→17:42)
[2025-02-19] MEDS: ULTRAM 50 MG PO ×2 (13:56→22:24)
[2025-02-19] MEDS: FERRLECIT 110 MG IV (13:57)
[2025-02-19 15:25] VITALS: BP 152/62
[2025-02-19] MEDS: HEPARIN 5000 UNITS SC ×2 (16:53→23:55)
[2025-02-19 17:16] LABS: Glucose - Point of Care 143 mg/dl (70-99)
[2025-02-19] MEDS: LIPITOR 20 MG PO (17:44)
[2025-02-19] MEDS: SENOKOT-S PO (20:05)
[2025-02-19 20:17] LABS: Glucose - Point of Care 113 mg/dl (70-99)
[2025-02-19] MEDS: TIMOPTIC 0.5% OPHTHALMIC SOLUTION 1 DROP OPHTH (21:13)
--- NOTE | 2025-02-19 21:53 | W.PN.UPDATE ---
Update Note
Progress Note Update
Updated Hgb 9.8. Orthopedically stable otherwise. Follow-up in the office 10 to 14 days for right shoulder postoperative check and position check of left shoulder fracture. Orthopedics to sign off
[2025-02-19 23:20] VITALS: BP 135/58
[2025-02-20] MEDS: SYNTHROID 50 MCG PO (05:59)
[2025-02-20 06:09] LABS: Hematocrit 29.6 % (37.0-47.0); Mean Corp Hgb Conc. 33.8 g/dL (33.0-37.0); Mean Corpuscular Hgb 29.9 pg (27.0-31.0); Mean Corpuscular Volume 88.6 fL (81.0-99.0); Platelet Count 168 10^3/uL (130-400); Red Blood Cell Count 3.34 10^6/uL (4.20-5.40); Red Cell Dist. Width 14.3 % (11.5-14.5); White Blood Cell Count 11.5 10^3/uL (4.8-10.8)
[2025-02-20 06:38] LABS: Blood Urea Nitrogen 36 mg/dl (7-17); Calcium 9.3 mg/dl (8.4-10.2); Carbon Dioxide 27 mmol/L (22-30); Chloride 111 mmol/L (98-107); Estimated Creatinine Clearance 50 ml/min; Glucose 71 mg/dl (70-99); Potassium 4.6 mmol/L (3.5-5.1); Sodium 138 mmol/L (135-145); eGFR > 60.00
[2025-02-20 07:00] VITALS: BP 147/70
[2025-02-20 07:46] LABS: Glucose - Point of Care 61 mg/dl (70-99)
[2025-02-20 08:15] LABS: Glucose - Point of Care 89 mg/dl (70-99)
[2025-02-20] MEDS: LANTUS SC (08:30)
[2025-02-20] MEDS: NOVOLOG FLEXPEN-MODERATE RESISTANCE SC ×2 (08:35→11:00)
[2025-02-20] MEDS: ULTRAM 50 MG PO ×2 (08:46→14:46)
[2025-02-20] MEDS: VITAMIN D3 (cholecalciferol) 50 MCG PO (08:51)
[2025-02-20] MEDS: SENOKOT-S 1 TABLET PO (08:52)
[2025-02-20] MEDS: VIBRAMYCIN 100 MG PO (08:52)
[2025-02-20] MEDS: NORVASC 5 MG PO (08:52)
[2025-02-20] MEDS: FEOSOL 325 MG PO (08:52)
[2025-02-20] MEDS: CORTEF 10 MG PO (08:52)
[2025-02-20] MEDS: PROTONIX 40 MG PO (08:53)
[2025-02-20] MEDS: JANUVIA 50 MG PO (08:53)
[2025-02-20] MEDS: NEURONTIN 100 MG PO (08:54)
[2025-02-20] MEDS: GLUCOTROL XL (EXTENDED RELEASE) PO (08:54)
[2025-02-20] MEDS: MIRALAX PO (08:55)
[2025-02-20] MEDS: HEPARIN 5000 UNITS SC (08:55)
[2025-02-20] MEDS: FARXIGA PO (08:56)
[2025-02-20] MEDS: DUPHALAC/CHRONULAC PO (08:56)
[2025-02-20] MEDS: GLUCOPHAGE PO (08:57)
[2025-02-20] MEDS: TIMOPTIC 0.5% OPHTHALMIC SOLUTION 1 DROP OPHTH (08:58)
[2025-02-20] MEDS: HYDROPHOR 1 APPLIC TOPICAL (08:59)
[2025-02-20 10:58] LABS: Glucose - Point of Care 85 mg/dl (70-99)
--- NOTE | 2025-02-20 11:16 | W.PN.HOSP.TC ---
Today's Communication/Plan
-
Discharge planning today
Assessment / Plan
Assessment / Plan
Physical exam:
General: No acute distress
HEENT: Normocephalic, Atraumatic and Moist Mucous Membranes
Respiratory: Clear to Auscultation; Negative Wheezes, Rales or Rhonchi
Cardiac: Regular Rhythm and S1/S2
GI: Soft, Nontender and Nondistended
Musculoskeletal: Multiple skin lacerations. Postop right shoulder. No Clubbing, No Cyanosis and No Edema
Neuro: Awake, Alert and Oriented, no gross neurological deficit
Psych: Calm
A/P:
Bilateral shoulder fracture (right side is comminuted fracture):
Status post total reverse arthroplasty right shoulder on 02/17
Pain control
Orthopedic following
PT OT eval
Appreciated orthopedic consult and follow-up
Discussed with family at bedside
Hemoglobin has remained stable
Medically ready for discharge
Acute blood loss anemia:
Hemoglobin 5.9--> up to 10
Workup revealed some iron deficiency some anemia of chronic disease, and normal B12 and folate. Reticulocyte count not that elevated. LFTs normal, LDH minimally elevated.
Status post blood transfusion
IV iron
CT of the abdomen pelvis unremarkable
Constipation:
Continue bowel regimen
Thrombocytopenia:
Suspect sequestration from blood loss and now back up to normal today
Preop eval:
RCRI index is 0 so giving a 3.9% risk of major cardiac event.
Obtain twelve-lead EKG and echocardiogram preop--> reviewed twelve-lead EKG and echocardiogram and both unremarkable.
Okay to go for surgery
DENYS:
Multifactorial dehydration, anemia, postobstructive, medications, other
Improving Cr 1.5--> 0.9 today
Resume ARB and HCTZ upon discharge
Off IVF
kidney-bladder US
Mechanical fall:
Continue pain control
Urinary retention:
Straight cath as needed
DENYS versus CKD:
Creatinine 0.9 today
Per family baseline around 1.1
Hypertension:
On losartan 100 mg daily and HCTZ 12.5 mg p.o. daily at home and was on hold due to DENYS but resume upon discharge now
Currently on amlodipine
Hyperlipidemia:
On atorvastatin 20 mg in the evening at home so resume
Diabetes mellitus type 2:
On glipizide 10 mg p.o. daily at home, metformin 1000 mg twice a day, and Jardiance 25 mg p.o. daily
Insulin sliding scale
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
History pituitary adenoma and adrenal insufficiency:
S/p surgery radiation at [place] many years back
On hydrocortisone 20 mg twice a day
Consider IV stress doses if hypotension or n.p.o.
Hypothyroidism:
Continue levothyroxine 50 mcg p.o. daily-did not see on her home list but will continue for now.
Skin abrasion from trauma:
Wound care evaluation
Multivitamins at home:
On aspirin 81 mg, vitamin D3, iron, B complex, gabapentin 100 mg twice a day.
DVT prophylaxis:
Start heparin SQ and plan to do full dose aspirin upon discharge
CODE STATUS:
Full code
Anticipated Discharge: Today
Subjective/Interval History
-
Date of Service: February 20, 2025
No new events
Objective Data
-
Labs:
Laboratory Results
02/20/25
05:57
WBC 11.5 H
Hgb 10.0 L
Hct 29.6 L
Plt Count 168
Sodium 138
Potassium 4.6
Chloride 111 H
Carbon Dioxide 27
BUN 36 H
Creatinine 0.9
Glucose 71
Calcium 9.3
Vital Signs:
Vital Signs
Temp Pulse Resp BP Pulse Ox
98.1 F 80 14 147/70 96
02/20/25 07:00 02/20/25 07:00 02/20/25 07:00 02/20/25 07:00 02/20/25 07:00
I&O
02/19/25 02/20/25 02/21/25
06:59 06:59 06:59
Intake Total 3020 / 3020 1670 / 1670
Output Total 1675 / 1675 3900 / 3900
Balance 1345 / 1345 -2230 / -2230
--- NOTE | 2025-02-20 11:22 | W.DCSUMMARY ---
Discharge Summary
Discharge Data
Date of Admission: 02/15/25
Date of Discharge: 02/20/25
Total time spent discharging patient (in min): 32
-
Pending Results: No
Hospital Course
Patient is 69 years old female with history of hypertension, diabetes mellitus, pituitary adenoma with adrenal insufficiency, came into the hospital after mechanical fall. Orthopedic consulted. She had a left shoulder glenohumeral dislocation with
fracture and a right proximal humerus fracture. She underwent successful closed reduction of the left shoulder in the ER. She underwent operative treatment of right shoulder with right reverse total arthroplasty on 02/17. Patient course
complicated with acute blood loss anemia due to same trauma that brought her into the hospital and she required multiple units of blood transfusion. Part of her workup revealed some iron deficiency and she received IV iron as well. Patient also
had a nasal fracture and ENT evaluated the patient and felt that there was no need for any surgical intervention. Patient also had DENYS that responded well with fluids and blood transfusion and avoiding nephrotoxic. Patient did well rest of the
hospital stay. She is being discharged in relatively stable condition to rehab today.
Discharge duration: 32 minutes
Discharge Plan
-
Patient Disposition: Residential/SNF
Discharge Diagnosis/Procedures: Right shoulder fracture status post reverse arthroplasty. Left shoulder fracture. Acute blood loss anemia. Constipation. Acute kidney injury.
Diet: Low Cholesterol
Activity: As tolerated
Additional Activity: sling with pillow to right upper extremity, sling to left upper extremity- non weight bearing; may do elbow wrist and hand ROM
Driving Restrictions: No driving
Bathing Restrictions: OK to Shower
Blood Work: Please PCP to order CBC, BMP within 1 week
Wound Care: maintain shoulder dressings until 1st postop visit- may take down by 10 days postop if coming loose or irritating skin.
Activity Restrictions/Additional Instructions:
Wound Care Instructions
Plantar hands: clean with soap and water, adaptic and dry dressing, change q other day and prn drainage.
Mineral oil to chin and lips daily and prn dryness.
Follow up at wound care center(*IF WOUNDS NOT HEALING) call for an appointment.
Referrals:
Inés Katz PA [Family Provider] - in less than 1 week
Uriel Sánchez MD [Active, Orthopedics]
Referral Note: f/u 2 weeks from date of surgery for xrays of both shoulders and clinical exam
Prescriptions:
New
aspirin 325 mg capsule
325 mg PO DAILY Qty: 30 0RF
tramadol 50 mg Tablet
50 mg PO Q6HPRN PRN (Reason: moderate pain) Qty: 4 0RF
polyethylene glycol 3350 17 gram Powder In Packet
17 g PO DAILY Qty: 14 0RF
metformin 1,000 mg Tablet
1,000 mg PO BID@0800,1700 30 Days Qty: 60 0RF
gabapentin 100 mg Capsule
100 mg PO BID 30 Days Qty: 60 0RF
Januvia 50 mg tablet
50 mg PO DAILY Qty: 30 0RF
Jardiance 25 mg tablet
25 mg PO DAILY Qty: 30 0RF
hydrochlorothiazide 12.5 mg capsule
12.5 mg PO DAILY Qty: 30 0RF
white petrolatum [Hydrophor] 42 % Ointment
1 applic topical DAILY Qty: 100 0RF
Rx Instructions:
Apply to affected areas as directed.
Continued
atorvastatin 20 mg Tablet
20 mg PO QPM
amlodipine 5 mg Tablet
5 mg PO DAILY
ferrous sulfate 325 mg (65 mg iron) Tablet
325 mg PO DAILY
cholecalciferol (vitamin D3) [Vitamin D3] 50 mcg (2,000 unit) Tablet
50 mcg PO DAILY
glipizide 10 mg Tablet Extended Release 24hr
10 mg PO DAILY
levothyroxine 50 mcg Tablet
50 mcg PO DAILY
pantoprazole 40 mg Tablet,Delayed Release (Dr/Ec)
40 mg PO DAILY
losartan 100 mg Tablet
100 mg PO DAILY
hydrocortisone 10 mg Tablet
10 mg PO BID
timolol 0.5 % Drops
1 drp OPHTHALMIC (EYE) BID
Discontinued
atorvastatin 10 mg Tablet
10 mg PO DAILY
aspirin 81 mg Tablet
81 mg PO DAILY
bacitracin-polymyxin B Ointment
1 ea TOPICAL QID
Rx Instructions:
apply to left eye 4 times a day
hydrochlorothiazide 12.5 mg Capsule
12.5 mg PO DAILY
gabapentin 100 mg Capsule
100 mg PO DAILY
metformin 500 mg Tablet Extended Release 24 Hr
500 mg PO BID
Januvia 50 mg Tablet
50 mg PO DAILY
Jardiance 25 mg Tablet
25 mg PO DAILY
Trulicity 0.75 mg/0.5 mL Pen Injector
0.75 mg SC QWEEK
Discharge Orders:
Discharge Patient (As Directed); Ordered 02/20/25
Ordered By: Jeremy Garcia
Discharge Date and Time
Discharge Date/Time: 02/20/25 15:04
Print Language: TAJIK
[2025-02-20 12:50] LABS: Glucose - Point of Care 79 mg/dl (70-99)
[2025-02-20] MEDS: FERRLECIT 110 MG IV (13:11)
[2025-02-20 14:28] VITALS: BP 140/63
--- NOTE | 2025-02-20 14:54 | CM ---
Patient has been medically cleared for discharge to [facility] for jail and rehab services. Ambulance transport scheduled for 3:00 PM. IMM complete. Review previous CM note for auth info as well as contact and fax info for
facility.
[2025-02-21 14:20] LABS: Haptoglobin 73 mg/dL (30-200)
== END 2025-02-20 15:04 | DRG 483 ==
LOC: 2 SOUTH 23:47
PROVIDERS: Nurse Practitioner Family; Nurse Practitioner Gerontology; Orthopaedic Surgery Hand Surgery; ADMITTING PHYSICIAN Hospitalist; ATTENDING PHYSICIAN Hospitalist; CONSULT PHYSICIAN Orthopaedic Surgery; CONSULT PHYSICIAN Otolaryngology; EMERGENCY PHYSICIAN Emergency Medicine; FAMILY PHYSICIAN Physician Assistant
PROC: 0RSKXZZ Reposition Left Shoulder Joint, External Approach (ICD-10-PCS; 2025-02-15)
PROC: 3E0234Z Introduction of Serum, Toxoid and Vaccine into Muscle, Percutaneous Approach (ICD-10-PCS; 2025-02-15)
PROC: 0RRJ00Z Replacement of Right Shoulder Joint with Reverse Ball and Socket Synthetic Substitute, Open Approach (ICD-10-PCS; 2025-02-17)
PROC: 30233N1 Transfusion of Nonautologous Red Blood Cells into Peripheral Vein, Percutaneous Approach (ICD-10-PCS; 2025-02-18)
DX: S42.291A Other displaced fracture of upper end of right humerus, initial encounter for closed fracture (principal); S42.292A Other displaced fracture of upper end of left humerus, initial encounter for closed fracture; E27.40 Unspecified adrenocortical insufficiency; D62 Acute posthemorrhagic anemia; N17.9 Acute kidney failure, unspecified; S02.2XXA Fracture of nasal bones, initial encounter for closed fracture; N18.2 Chronic kidney disease, stage 2 (mild); E11.22 Type 2 diabetes mellitus with diabetic chronic kidney disease; I12.9 Hypertensive chronic kidney disease with stage 1 through stage 4 chronic kidney disease, or unspecified chronic kidney disease; W01.0XXA Fall on same level from slipping, tripping and stumbling without subsequent striking against object, initial encounter; D35.2 Benign neoplasm of pituitary gland; S00.81XA Abrasion of other part of head, initial encounter; S40.812A Abrasion of left upper arm, initial encounter; S40.811A Abrasion of right upper arm, initial encounter; E03.9 Hypothyroidism, unspecified; J34.89 Other specified disorders of nose and nasal sinuses; J34.2 Deviated nasal septum; E78.5 Hyperlipidemia, unspecified; E61.1 Iron deficiency; D63.1 Anemia in chronic kidney disease; K59.00 Constipation, unspecified; D69.6 Thrombocytopenia, unspecified; E86.0 Dehydration; R33.8 Other retention of urine; Z23 Encounter for immunization; Z91.81 History of falling; Z79.84 Long term (current) use of oral hypoglycemic drugs; Z86.73 Personal history of transient ischemic attack (TIA), and cerebral infarction without residual deficits; Z92.3 Personal history of irradiation; Z79.82 Long term (current) use of aspirin
CPT/HCPCS: 23650; 70450; 70486; 71045; 72125; 73020; 73030; 73060; 73200; 73552; 73700; 74176; 76770; 80048; 80053; 80076; 81003; 81015; 82607; 82728; 82746; 82947; 82962; 83010; 83036; 83540; 83550; 83615; 85025; 85027; 85045; 86850; 86900; 86901; 86920; 87070; 87086; 90715; 93005; 93306; 96372; 96374; 97163; 97167; 97530; 99152; 99285; C1713; C1776; J2916; P9016